=== PATIENT | female | born 1985 | race Two or more races ===

== ENCOUNTER 2022-04-05 23:10 | Inpatient (IN) | payer BC, OTHER ==
[2022-04-06] MEDS ORDERED: PROMETHAZINE HCL 25 MG/1 ML VIAL ONE (02:16)
[2022-04-06] MEDS ORDERED: BUTORPHANOL TARTRATE 2 MG/ML VIAL ONE (02:16)
[2022-04-06 02:20] LABS: INR 0.97 (0.83-1.09); PROTHROMBIN TIME (PATIENT) 11.1 SEC (9.7-13.0)
[2022-04-06 02:22] LABS: ACTIVATED PTT 27.2 SECONDS (25.2-36.5)
[2022-04-06] MEDS ORDERED: OXYTOCIN 30 UNITS in 0.9% NS 30 UNIT/500 ML INFUS.BAG IVPB ONE (02:23)
[2022-04-06 02:27] LABS: BASO % 0.3 % (0-2.0); EOS % 0.4 % (0-4.5); HEMATOCRIT 38.6 % (32.4-45.2); HEMOGLOBIN 12.7 GM/dL (10.7-15.3); LYMPH % 15.7 % (8-40); MCH 24.5 pg (25.7-33.7); MCHC 32.9 g/dl (32.0-36.0); MEAN CELL VOLUME 74.6 fl (80-96); MEAN PLT VOLUME 11.9 fl (7.5-11.1); MONO % 9.9 % (3.8-10.2); NEUT % 73.7 % (42.8-82.8); RBC 5.17 M/mm3 (3.60-5.2); RDW 15.1 % (11.6-15.6); WHITE BLOOD COUNT 6.5 K/mm3 (4.0-10.0)
[2022-04-06] MEDS ORDERED: LACTATED RINGERS SOLUTION 1,000 ML IV SCH (02:30)
[2022-04-06] MEDS ORDERED: PROMETHAZINE HCL 25 MG/1 ML VIAL IVPB ONE (02:30)
[2022-04-06] MEDS ORDERED: BUTORPHANOL TARTRATE 1 MG/ML VIAL IVPB ONE (02:30)
[2022-04-06 02:31] LABS: CALCIUM 8.8 mg/dL (8.5-10.1)
[2022-04-06 02:35] LABS: CREATININE 0.6 mg/dL (0.55-1.3)
[2022-04-06] MEDS ORDERED: FENTANYL/BUPIVACAINE/NS/PF - PCEA - 50 ML DISP.SYRIN EP ONE (02:38)
[2022-04-06] MEDS ORDERED: DEXTROSE 5%-LACTATED RINGERS 1,000 ML IV SCH (02:45)
[2022-04-06] MEDS ORDERED: OXYTOCIN 30 UNITS in 0.9% NS 30 UNIT/500 ML INFUS.BAG IVPB SCH (02:45)
[2022-04-06 02:57] LABS: BLOOD UREA NITROGEN 7.3 mg/dL (7-18)
[2022-04-06] MEDS ORDERED: NALOXONE HCL 0.4 MG/ML VIAL IVPUSH PRN (03:19)
[2022-04-06 03:28] LABS: PLATELET COUNT 54 10^3/uL (134-434)
[2022-04-06] MEDS ORDERED: FENTANYL/BUPIVACAINE/NS/PF - PCEA - 50 ML DISP.SYRIN EP SCH (03:30)
[2022-04-06 03:40] VITALS: BMI 32.2
[2022-04-06] MEDS ORDERED: OXYTOCIN 20 UNITS in 0.9% NS 20 UNIT/1,000 ML INFUS.BAG IV ONE (04:14)
[2022-04-06] MEDS ORDERED: BUPIVACAINE HCL/PF 0.25% (2.5MG/ML) 10 ML VIAL ONE (04:26)
[2022-04-06 04:49] LABS: BASO % 0.2 % (0-2.0); EOS % 0.1 % (0-4.5); HEMOGLOBIN 11.7 GM/dL (10.7-15.3); LYMPH % 9.7 % (8-40); MCH 24.5 pg (25.7-33.7); MCHC 33.3 g/dl (32.0-36.0); MEAN CELL VOLUME 73.6 fl (80-96); MEAN PLT VOLUME 11.3 fl (7.5-11.1); MONO % 10.1 % (3.8-10.2); NEUT % 79.9 % (42.8-82.8); RBC 4.75 M/mm3 (3.60-5.2); WHITE BLOOD COUNT 7.9 K/mm3 (4.0-10.0)
[2022-04-06 04:56] LABS: PLATELET COUNT 44 10^3/uL (134-434)
[2022-04-06] MEDS ORDERED: WITCH HAZEL 50% (TUCKS) 40 PAD/JAR PAD TP PRN (05:35)
[2022-04-06] MEDS ORDERED: ACETAMINOPHEN 325 MG TABLET (FP) PO PRN (05:35)
[2022-04-06] MEDS ORDERED: BENZOCAINE 28 GM HEMORRHOIDAL OINTMENT TP PRN (05:35)
[2022-04-06] MEDS ORDERED: BISACODYL 10 MG SUPP.RECT RC PRN (05:35)
[2022-04-06] MEDS ORDERED: METHYLERGONOVINE MALEATE 0.2 MG/1 ML AMP IM PRN (05:35)
[2022-04-06] MEDS ORDERED: oxyCODONE HCL 5 MG TABLET PO PRN (05:35)
[2022-04-06] MEDS ORDERED: BENZOCAINE 20% 57 GM BOTTLE TP PRN (05:35)
[2022-04-06] MEDS ORDERED: OXYTOCIN 20 UNITS in 0.9% NS 20 UNIT/1,000 ML INFUS.BAG IV SCH (05:45)
[2022-04-06] MEDS ORDERED: PRENATAL VITAMINS W/ FOLIC ACID TABLET (FP) PO ONE (10:17)
[2022-04-06] MEDS: PRENATAL VITAMINS W/ FOLIC ACID TABLET (FP) PO SCH (10:20)
[2022-04-06 10:44] LABS: HIV INTERPRETATION NEGATIVE (NEGATIVE)
[2022-04-06] MEDS ORDERED: IBUPROFEN 600 MG TABLET (FP) PO ONE (11:09)
[2022-04-06] MEDS: IBUPROFEN 600 MG TABLET (FP) PO PRN ×2 (11:15→21:33)
[2022-04-06 14:01] LABS: HEMOGLOBIN 12.3 GM/dL (10.7-15.3); RBC 5.05 M/mm3 (3.60-5.2)
[2022-04-06 14:02] LABS: BASO % 0.1 % (0-2.0); HEMATOCRIT 37.3 % (32.4-45.2); LYMPH % 8.9 % (8-40); MCH 24.4 pg (25.7-33.7); MEAN CELL VOLUME 73.8 fl (80-96); MEAN PLT VOLUME 10.2 fl (7.5-11.1); MONO % 10.2 % (3.8-10.2); NEUT % 80.8 % (42.8-82.8)
[2022-04-06 14:03] LABS: PLATELET COUNT 54 10^3/uL (134-434)
[2022-04-06 14:18] LABS: WHITE BLOOD COUNT 8.8 K/mm3 (4.0-10.0)
[2022-04-06 14:26] VITALS: RESP 18
[2022-04-07] MEDS: IBUPROFEN 600 MG TABLET (FP) PO PRN ×3 (01:25→18:20)
[2022-04-07] MEDS: PRENATAL VITAMINS W/ FOLIC ACID TABLET (FP) PO SCH (09:08)
[2022-04-07] MEDS ORDERED: SENNOSIDES/DOCUSATE COMBO (SENNA PLUS) TABLET (UD) PO PRN (22:00)
[2022-04-08] MEDS: IBUPROFEN 600 MG TABLET (FP) PO PRN ×2 (00:50→10:29)
[2022-04-08] MEDS: PRENATAL VITAMINS W/ FOLIC ACID TABLET (FP) PO SCH (10:29)
[2022-04-08 11:00] VITALS: BP 108/67; PULSE 83; TEMP 98.6
== END 2022-04-08 11:25 | disposition home or self-care (01) | DRG 807 ==
LOC: JLDR 23:10 → J3W 04-06 15:45
PROVIDERS: ADMIT Obstetrics & Gynecology; ATTEND Obstetrics & Gynecology
PROC: 10E0XZZ Delivery of Products of Conception, External Approach (ICD-10-PCS; principal; 2022-04-06)
PROC: 0HQ9XZZ Repair Perineum Skin, External Approach (ICD-10-PCS; 2022-04-06)
DX: O48.0 Post-term pregnancy (principal); Z37.0 Single live birth; O66.0 Obstructed labor due to shoulder dystocia; O70.0 First degree perineal laceration during delivery; Z3A.40 40 weeks gestation of pregnancy
CPT/HCPCS: 36415; 59409; 80048; 85025; 85610; 85730; 86780; 86850; 86900; 86901; 87389; C9803-CS; U0003; U0005

== ENCOUNTER 2023-12-26 23:00 | Inpatient (IN) | payer BC ==
[2023-12-26 23:51] VITALS: BMI 31.8
[2023-12-27] MEDS: ELECTROLYTE-148 SOLN 1,000 ML IV SCH (00:10)
[2023-12-27 00:27] LABS: BASO % 0.4 % (0-2.0); EOS % 0.3 % (0-4.5); HEMATOCRIT 37.7 % (32.4-45.2); HEMOGLOBIN 12.8 GM/dL (10.7-15.3); LYMPH % 22.3 % (8-40); MCH 26.4 pg (25.7-33.7); MCHC 33.9 g/dl (32.0-36.0); MEAN CELL VOLUME 77.9 fl (80-96); PLATELET COUNT 58 10^3/uL (134-434); RBC 4.84 M/mm3 (3.60-5.2); RDW 15.3 % (11.6-15.6); WHITE BLOOD COUNT 6.1 K/mm3 (4.0-10.0)
[2023-12-27 00:32] LABS: INR 0.94 (0.83-1.09); PROTHROMBIN TIME (PATIENT) 10.6 SEC (9.7-13.0)
[2023-12-27 00:35] LABS: ACTIVATED PTT 28.4 SECONDS (25.2-36.5)
[2023-12-27 00:46] LABS: CALCIUM 8.5 mg/dL (8.5-10.1); POTASSIUM 3.5 mmol/L (3.5-5.1)
[2023-12-27 00:47] LABS: BLOOD UREA NITROGEN 7.6 mg/dL (7-18)
[2023-12-27 00:50] LABS: CREATININE 0.5 mg/dL (0.55-1.3)
[2023-12-27 01:14] LABS: SYPHILIS W/ RPR CONF NON-REACTIVE (NONREACTIVE)
[2023-12-27 01:47] LABS: HIV INTERPRETATION NEGATIVE (NEGATIVE)
[2023-12-27] MEDS ORDERED: FENTANYL/BUPIVACAINE/NS/PF - PCEA - 50 ML DISP.SYRIN EP ONE (01:52)
[2023-12-27] MEDS ORDERED: OXYTOCIN 20 UNITS in 0.9% NS 20 UNIT/1,000 ML INFUS.BAG IV ONE (02:00)
[2023-12-27] MEDS ORDERED: MISOPROSTOL 200 MCG TABLET ONE (02:08)
[2023-12-27] MEDS ORDERED: LIDOCAINE HCL 1% PRESERVATIVE FREE - 30ML VIAL ONE (02:09)
[2023-12-27] MEDS: OXYTOCIN 20 UNITS in 0.9% NS 20 UNIT/1,000 ML INFUS.BAG IV SCH (02:10)
[2023-12-27] MEDS: METHYLERGONOVINE MALEATE 0.2 MG/1 ML AMP IM ONE (02:12)
[2023-12-27] MEDS: MISOPROSTOL 200 MCG TABLET NR ONE (02:26)
[2023-12-27] MEDS ORDERED: BISACODYL 10 MG SUPP.RECT RC PRN (02:47)
[2023-12-27] MEDS ORDERED: BENZOCAINE 20% 57 GM BOTTLE TP PRN (02:47)
[2023-12-27] MEDS ORDERED: oxyCODONE HCL 5 MG TABLET PO PRN (02:47)
[2023-12-27] MEDS ORDERED: METHYLERGONOVINE MALEATE 0.2 MG/1 ML AMP IM PRN (02:47)
[2023-12-27] MEDS: OXYTOCIN 30 UNITS in 0.9% NS 30 UNIT/500 ML INFUS.BAG IVPB SCH (02:59)
[2023-12-27] MEDS ORDERED: IBUPROFEN 600 MG TABLET (FP) PO ONE (03:14)
[2023-12-27] MEDS: IBUPROFEN 600 MG TABLET (FP) PO PRN (03:15)
[2023-12-27] MEDS: ACETAMINOPHEN 325 MG TABLET (FP) PO PRN (06:21)
[2023-12-27 07:28] LABS: HEMATOCRIT 37.8 % (32.4-45.2); HEMOGLOBIN 12.8 GM/dL (10.7-15.3); LYMPH % 9.3 % (8-40); MCH 26.7 pg (25.7-33.7); MCHC 33.9 g/dl (32.0-36.0); MEAN CELL VOLUME 78.8 fl (80-96); MEAN PLT VOLUME 10.6 fl (7.5-11.1); MONO % 7.8 % (3.8-10.2); NEUT % 82.9 % (42.8-82.8); PLATELET COUNT 55 10^3/uL (134-434); RBC 4.79 M/mm3 (3.60-5.2); RDW 15.4 % (11.6-15.6); WHITE BLOOD COUNT 10.3 K/mm3 (4.0-10.0)
[2023-12-27] MEDS: FERROUS SO4 325 MG TABLET (FP) PO SCH (09:53)
[2023-12-27] MEDS: PRENATAL VITAMINS W/ FOLIC ACID TABLET (FP) PO SCH (09:53)
[2023-12-27 18:22] VITALS: RESP 18
[2023-12-28 10:09] VITALS: BP 125/71; PULSE 67; TEMP 98
[2023-12-28] MEDS: BENZOCAINE 28 GM HEMORRHOIDAL OINTMENT TP PRN (15:59)
[2023-12-28] MEDS: WITCH HAZEL 50% (TUCKS) 40 PAD/JAR PAD TP PRN (15:59)
[2023-12-28] MEDS ORDERED: SENNOSIDES/DOCUSATE COMBO (SENNA PLUS) TABLET (UD) PO PRN (22:00)
== END 2023-12-28 17:10 | disposition home or self-care (01) | DRG 807 ==
LOC: JDEL 23:00 → JLDR 23:20 → J3W 12-27 04:43
PROVIDERS: ADMIT Obstetrics & Gynecology; ATTEND Obstetrics & Gynecology
PROC: 10E0XZZ Delivery of Products of Conception, External Approach (ICD-10-PCS; principal; 2023-12-27)
PROC: 0W8NXZZ Division of Female Perineum, External Approach (ICD-10-PCS; 2023-12-27)
DX: O77.0 Labor and delivery complicated by meconium in amniotic fluid (principal); Z37.0 Single live birth; O66.0 Obstructed labor due to shoulder dystocia; Z3A.39 39 weeks gestation of pregnancy
CPT/HCPCS: 36415; 80048; 85025; 85610; 85730; 86780; 86803; 86850; 86900; 86901; 87389